=== PATIENT | male | born 1950 | race Caucasian/White ===

== ENCOUNTER 2019-05-29 11:11 | Day surgery (SDC) | payer BC ==
[~2019-05-29] VITALS: Ht 188 cm; Wt 133.3 kg
[~2019-05-29 11:11] MED LIST: CALC-855 PO; DOCU-28 PO; FERR324T7 PO; GLUC-192 PO; IBUP-1986 PO; L. A1CAP2 PO; LISI40TA4 PO; TRAM50TA2 PO; VITA-268 PO; WALKERFR
[2019-05-29 11:37] VITALS: BP 137/74
[2019-05-29] MEDS ORDERED: BENZ200C53 PO (12:00)
[2019-05-29] MEDS ORDERED: ALB0.5UD IH (12:00)
[2019-05-29] MEDS ORDERED: ATOR40TA PO (12:00)
[2019-05-29] MEDS ORDERED: ASPI81TA52 PO (12:00)
[2019-05-29] MEDS ORDERED: AMLO5TAB PO (12:00)
[2019-05-29] MEDS ORDERED: HYDR12.55 PO (12:00)
[2019-05-29] MEDS ORDERED: HYDR50TA65 PO (12:00)
[2019-05-29] MEDS ORDERED: MULT-964 PO (12:00)
[2019-05-29] MEDS ORDERED: LIDOcaine 1% (10mg/ml) 2ml vial ONE ×2 (13:04→13:05)
[2019-05-29] MEDS ORDERED: LIDOcaine 1%/PF 5ML 10 MG/ML VIAL ONE (13:11)
[2019-05-29] MEDS ORDERED: gelatin sponge, absorbable (Gelfoam 12-7MM) sponge TP ONE (13:37)
[2019-05-29 13:47] VITALS: BP 158/79
[2019-05-29 14:01] VITALS: BP 167/96
== END 2019-05-29 14:25 | disposition home or self-care (01) ==
LOC: SSTAY O 11:11
PROVIDERS: ATTEND Radiology Vascular & Interventional Radiology
DX: C85.15 Unspecified B-cell lymphoma, lymph nodes of inguinal region and lower limb (principal); R59.1 Generalized enlarged lymph nodes; Z79.899 Other long term (current) drug therapy
CPT/HCPCS: 38505; 76942; 93971; J2001